=== PATIENT | male | born 1985 | race African-American/Black ===

== ENCOUNTER 2022-09-02 15:11 | Emergency (ER) | payer MEDICAID, OTHER ==
[~2022-09-02] VITALS: Ht 177.8 cm; Wt 136.4 kg
[~2022-09-02 15:11] MED LIST: ARIP30TA PO
[2022-09-02] MEDS ORDERED: PALI39DI IM (15:23)
[2022-09-02] MEDS ORDERED: IBUPROFEN 600 MG TABLET PO ONE (15:45)
[2022-09-02] MEDS ORDERED: CYCLOBENZAPRINE HCL 10 MG TABLET PO ONE (15:45)
[2022-09-02 16:30] VITALS: BP 138/84
== END 2022-09-02 16:33 | disposition home or self-care (01) ==
LOC: EMS 15:18
DX: R51.9 Headache, unspecified (principal); F31.9 Bipolar disorder, unspecified; F20.9 Schizophrenia, unspecified; Z88.0 Allergy status to penicillin; Z88.8 Allergy status to other drugs, medicaments and biological substances
CPT/HCPCS: 99283